=== PATIENT | male | born 1950 | race Hispanic/Latino ===

== ENCOUNTER 2018-06-18 07:03 | Emergency (ER) | payer MEDICARE, MEDICAID ==
--- NOTE | 2018-06-18 07:24 | ED PDOC ---
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 residential staff states the patient fell in the shower, sustained abrasions to rightupper back. Patient denies any complaints at this time, care home aide states pt is at baseline, and is mildy anxious. 06/18/18 07:39 Time/Duration: Prior to Arrival Symptom Onset: Sudden Symptom Course: Unchanged Activities at Onset: Light Context: Home Past Medical History - Provider Review Nursing Documentation Reviewed: Yes Family/Social History - Physician Review Nursing Documentation Reviewed: Yes Family/Social History: Unknown Family HX Allergies/Home Meds Allergies/Adverse Reactions: Allergies No Known Allergies Allergy (Verified 06/18/18 07:27) Home Medications: Home Meds Medication Instructions Recorded Confirmed Aspirin [Adult Low Dose Aspirin EC] 81 mg PO DAILY 06/18/18 06/18/18 Cholecalciferol [Vitamin D 1000 IU] 06/18/18 Folic Acid [Folic Acid] 1 mg PO DAILY 06/18/18 06/18/18 Gabapentin [Neurontin] 400 mg PO TID 06/18/18 06/18/18 Hydroxyzine HCl [Hydroxyzine HCl] 25 mg PO 06/18/18 Lamotrigine [Lamictal (Blue)] 25 mg BID 06/18/18 06/18/18 Metoprolol Succinate [Toprol Xl] 25 mg PO DAILY 06/18/18 06/18/18 Mineral Oil/Petrolatum,White 06/18/18 [Hydrocerin Cream] Simvastatin [Zocor] 20 mg pe PO 06/18/18 Review of Systems - Physician Review All systems were reviewed & negative as marked: Yes - Review of Systems Constitutional: Normal Eyes: Normal ENT: Normal Respiratory: Normal. absent: SOB, Cough Cardiovascular: Normal. absent: Chest Pain Gastrointestinal: Normal. absent: Abdominal Pain, Diarrhea, Nausea, Vomiting Genitourinary Male: Normal. absent: Dysuria, Frequency Musculoskeletal: Normal. absent: Back Pain, Neck Pain Skin: Normal. absent: Rash Neurological: Normal. absent: Headache, Dizziness Endocrine: Normal Hemo/Lymphatic: Normal Psychiatric: Normal Physical Exam Vital Signs Reviewed: Yes Vital Signs Temp Pulse Resp BP Pulse Ox 06/18/18 09:08 98.6 F 62 18 172/82 H 99 06/18/18 08:31 60 18 185/80 H 98 06/18/18 07:18 99.1 F 128 H 20 185/103 H 97 Temperature: Afebrile Blood Pressure: Hypertensive Pulse: Tachycardic Respiratory Rate: Normal Appearance: Positive for: Well-Appearing, Non-Toxic, Comfortable Pain Distress: None Mental Status: Positive for: Alert and Oriented X 3 - Systems Exam Head: Present: Atraumatic, Normocephalic Pupils: Present: PERRL Extroacular Muscles: Present: EOMI Conjunctiva: Present: Normal Mouth: Present: Moist Mucous Membranes Neck: Present: Normal Range of Motion Respiratory/Chest: Present: Clear to Auscultation, Good Air Exchange. No: Respiratory Distress, Accessory Muscle Use Cardiovascular: Present: Regular Rate and Rhythm, Normal S1, S2. No: Murmurs Abdomen: No: Tenderness, Distention, Peritoneal Signs Back: Present: Normal Inspection. No: CVA Tenderness, Midline Tenderness Upper Extremity: Present: Normal Inspection. No: Cyanosis, Edema Lower Extremity: Present: Normal Inspection. No: Edema Neurological: Present: GCS=15, CN II-XII Intact, Speech Normal Skin: Present: Warm, Dry, Abrasion (abrasions to rt upper back), Other ( psoriasis to lower back). 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 Plan: -- Tylenol -- TDAP vaccine -- Xray rt ribs and PA chest -- reassess and disposition Procedure Notes: 06/18/18 07:33 06/18/18 07:40 right uppe rback abrasions, no flank pain no abd pain. mildly tachy (likely 2/2 anxiety which is pt baseline). will obtain cxr. no thorasic lumbar ttp or step offs 06/18/18 10:46 xr neg as read by me. pt observed several hour for serial abd exam. no flank pain no abd pain. tachycardia resolved as pt now calm. advise outpt fu. pt denies any complatns smilign and joking - RAD Interpretation Radiology Orders: 06/18/18 07:30 RIBS RIGHT & PA CHEST [RAD] Stat - Medication Orders Current Medication Orders: Discontinued Medications Acetaminophen (Tylenol 325mg Tab) 975 mg PO STAT STA Stop: 06/18/18 07:31 Last Admin: 06/18/18 07:35 Dose: 975 mg Tetanus/Reduced Diphtheria/Acell Pertussis (Boostrix Vaccine Inj) 0.5 ml IM .ONCE ONE Stop: 06/18/18 07:31 Last Admin: 06/18/18 07:35 Dose: 0.5 ml MAR Immunization Data Document 06/18/18 07:35 [facility] [place] 06/18/18 07:36 [id number] Immunization Data Vaccine Information Sheet Given No - Scribe Statement The provider has reviewed the documentation as recorded by the Scribe Huma Rodriguez All medical record entries made by the Scribe were at my direction and personally dictated by me. I have reviewed the chart and agree that the record accurately reflects my personal performance of the history, physical exam, medical decision making, and the department course for this patient. I have also personally directed, reviewed, and agree with the discharge instructions and disposition. Disposition/Present on Arrival - Present on Arrival Any Indicators Present on Arrival: No - Disposition Have Diagnosis and Disposition been Completed?: Yes Diagnosis: Fall, Abrasion Disposition: HOME/ ROUTINE Disposition Time: 09:00 Condition: STABLE Discharge Instructions (ExitCare): Preventing Falls in the Older Adult, Skin Abrasions, Bruised Rib (DC) Additional Instructions: return to er with worsening symptoms or concerns. Prescriptions: Naproxen 500 mg PO BID PRN #14 tab PRN Reason: Pain, Mild (1-3) Naproxen 500 mg PO BID PRN #14 tablet PRN Reason: Pain, Mild (1-3) Forms: [employer] (Maltese)
[2018-06-18] MEDS ORDERED: TDAP Vaccine 0.5 mL Syr IM ONE (07:30)
[2018-06-18 08:32] VITALS: RESP 18
[2018-06-18 09:09] VITALS: BP 172/82; PULSE 62; TEMP 98.6; O2SAT 99
--- NOTE | 2018-06-18 10:47 | RAD ---
Date of service: 06/18/2018 PROCEDURE: Radiographs of the Chest and Right Ribs. HISTORY: fall COMPARISON: None available. TECHNIQUE: Frontal radiograph of the chest and multiple oblique radiographs of the right ribs were obtained. FINDINGS: RIGHT RIBS: No acute fracture or focal lesion visualized. LUNGS: The lungs are well inflated and clear. PLEURA: No pneumothorax or pleural fluid. CARDIOVASCULAR: Normal sized heart. No pulmonary vascular congestion. OTHER FINDINGS: There is unfolding of the ascending aorta. IMPRESSION: No acute rib fracture. Clear lungs plain
== END 2018-06-18 09:08 | disposition home or self-care (01) ==
LOC: ED 07:03
DX: S20.411A Abrasion of right back wall of thorax, initial encounter (principal); W18.2XXA Fall in (into) shower or empty bathtub, initial encounter; Y93.E1 Activity, personal bathing and showering; Y92.129 Unspecified place in nursing home as the place of occurrence of the external cause; Z23 Encounter for immunization